=== PATIENT | female | born 1955 | race American Indian/Alaskan Native ===

== ENCOUNTER 2018-10-12 07:11 | Day surgery (SDC) | payer OTHER ==
[~2018-10-12 07:11] MED LIST: NACL 0.9% 1000 ML 1,000 ML IV SCH
[2018-10-12] MEDS ORDERED: VERSED ONE (09:06)
[2018-10-12] MEDS ORDERED: DIPRIVAN 10 MG/ML IV ONE ×2 (09:06)
[2018-10-12] MEDS ORDERED: XYLOCAINE MPF 2% ONE (09:30)
[2018-10-12] MEDS ORDERED: ROBINUL ONE (09:30)
--- NOTE | 2018-10-12 09:33 | Operative Report ---
Operative Report Operative Report: SURGEON: Joel Holman MD COLONOSCOPY with snare polypectomy REPORT PREOPERATIVE AND POSTOPERATIVE DIAGNOSIS: PH colon polyps DESCRIPTION OF PROCEDURE: The colonoscope was passed to the cecum as identified by the ileocecal valve and appendiceal orifice. Scope was carefully withdrawn. Retroflexion was performed in the rectum. At the end of procedure, the scope was cleaned using normal technique. Vital signs monitored continuously throughout. SEDATION: Provided by [facility]. Quality of the prep was good COMPLICATIONS: None. ESTIMATED BLOOD LOSS: Minimal FINDINGS: * Single 3 mm sessile polyp in the sigmoid colon, removed by cold snare polypectomy estimated blood loss minimal * Small nonbleeding internal hemorrhoids * Exam otherwise normal RECOMMENDATIONS: Repeat colonoscopy 5 years
[2018-10-12 10:17] VITALS: BP 147/87
--- NOTE | 2018-10-12 14:07 | Anesthesia Day of Surgery ---
Anesthesia Day of Surgery - Day of Surgery Patient Examined: Yes Patient H&P Reviewed: Yes Patient is NPO: Yes
--- NOTE | 2018-10-12 14:07 | Anesthesia Consultation ---
Anesthesia Consult and Med Hx Date of service: 10/12/18 - Airway Anesthetic Teeth Evaluation: Poor ROM Head & Neck: Adequate Mental/Hyoid Distance: Adequate Mallampati Class: Class I Intubation Access Assessment: Good - Pulmonary Exam CTA: Yes - Cardiac Exam Cardiac Exam: RRR - Pre-Operative Health Status ASA Pre-Surgery Classification: ASA2 Proposed Anesthetic Plan: MAC - Pulmonary Hx Smoking: No (Former smoker) - Cardiovascular System Hx Hypertension: Yes
== END 2018-10-12 07:12 | disposition home or self-care (01) ==
LOC: GIO 07:11
PROVIDERS: ATTEND Student in an Organized Health Care Education/Training Program
DX: Z12.11 Encounter for screening for malignant neoplasm of colon (principal); D12.5 Benign neoplasm of sigmoid colon; K64.8 Other hemorrhoids; E78.00 Pure hypercholesterolemia, unspecified; I10 Essential (primary) hypertension; Z86.010 Personal history of colon polyps; Z87.891 Personal history of nicotine dependence; Z98.51 Tubal ligation status; Z98.890 Other specified postprocedural states
CPT/HCPCS: 45385; 88305; J2250; J2704; J7030